=== PATIENT | male | born 1950 | race Two or more races ===

== ENCOUNTER 2020-09-28 23:04 | Inpatient (IN) | payer OTHER, BC ==
[~2020-09-28] VITALS: Ht 172.7 cm; Wt 68.5 kg
[2020-09-29] MEDS ORDERED: NIFEDIPINE ER30 M1 (00:16)
[2020-09-29] MEDS ORDERED: FORTAMET500 MG (00:16)
[2020-09-29] MEDS ORDERED: BENICAR40 MG (00:17)
[2020-09-30] MEDS ORDERED: LEVOTHYROXINE50 MCG (08:21)
== END 2020-10-01 12:12 | disposition left against medical advice (07) | DRG 281 ==
LOC: ER 23:04 → ICU 09-29 08:13 → MEDJ 09-30 18:50
PROVIDERS: ADMIT Internal Medicine; ATTEND Internal Medicine
PROC: 4A12X4Z Monitoring of Cardiac Electrical Activity, External Approach (ICD-10-PCS; principal; 2020-09-30)
DX: I48.91 Unspecified atrial fibrillation (principal); I21.4 Non-ST elevation (NSTEMI) myocardial infarction; I24.9 Acute ischemic heart disease, unspecified; I10 Essential (primary) hypertension; E11.9 Type 2 diabetes mellitus without complications; E03.8 Other specified hypothyroidism; Z20.822 Contact with and (suspected) exposure to COVID-19; Z79.84 Long term (current) use of oral hypoglycemic drugs